=== PATIENT | female | born 1985 | race Caucasian/White ===

== ENCOUNTER → 2016-10-21 | Outpatient (CLI) | payer MEDICARE, MEDICAID ==
[~2016-10-21] MED LIST: ALEVE220 MG PO; ALL DAY ALLERGY10 MG PO; ALPRAZOLAM0.25 MG PO; AMOXIL500 MG PO; BACTRIM DS 8001 TA1 PO; CEPHALEXIN500 MG PO; CIPRO 500MG TA500 MG PO; CLARITIN-D 12HR1 T12 PO; DARVOCET-N 1001 EACH PO; ESCITALOPRAM20 MG PO; FAMOTIDINE 20MG20 MG PO; FLAGYL500 M1 PO; FLEXERIL10 MG PO; FLINTSTONES COM1 CTB PO; FLONASE 50 MCG16 GM; HYDROCODONE1 TABLE1 PO; HYDROXYZINE HCL25 M1 PO; IBU-8800 MG PO; KEFLEX 500MG.500 MG PO; LORATADINE10 M1 PO; LORTAB 5/500 501 TAB PO; MACRODANTIN100 MG PO; NOMEDS *; PHENERGAN 25MG.25 M1 PO; PREDNISONE 20MG20 MG PO; ROBAXIN-750750 MG PO; SENNA8.8 MG/51 PO; SERTRALINE 50MG50 MG PO; TESSALON PERLE100 MG PO; VOLTAREN75 MG PO; ZITHROMAX Z PA250 MG PO; ZITHROMAX Z-PA250 M1 PO; Zofran4 MG PO
--- NOTE | 2016-10-21 18:36 | RADIOLOGY REPORT PS360 ---
US RUQ-(ABD LTD)1ORGAN/QUAD/FU HISTORY: RUQ PAIN, DIARRHEA Patient Age: 31 years: Female Ordering Physician: Roxie Barclya APRN TECHNIQUE: Ultrasound right upper quadrant COMPARISON :CT abdomen and ultrasound right upper quadrant from 2013 FINDINGS Pancreas. Unremarkable head body and medial tail well visualized. Liver. No focal lesions. No biliary ductal dilatation. Portal vein appears normal direction flow and size Common duct normal diameter 4 mm hilum of liver. Gallbladder surgically absent. Right kidney. Normal 10 cm in length or textural maintained IMPRESSION: No significant findings Gallbladder surgically removed. Common duct appears normal. Liver and pancreas and right kidney otherwise unremarkable
== END ==
LOC: RAD 07:57
DX: R10.821 Right upper quadrant rebound abdominal tenderness (principal); R19.7 Diarrhea, unspecified